=== PATIENT | female | born 1990 | race Caucasian/White ===

== ENCOUNTER 2023-06-12 18:44 | Emergency (ER) | payer OTHER ==
[~2023-06-12] VITALS: Ht 149.9 cm; Wt 53.5 kg
[2023-06-12] MEDS ORDERED: LIDOCAINE 1% INJ 50 ML MDV IJ ONE (20:30)
[2023-06-12] MEDS: LIDOCAINE 1% INJ 50 ML MDV IJ ONE (20:31)
[2023-06-12] MEDS ORDERED: SULF1TAB48 PO (22:35)
[2023-06-12] MEDS ORDERED: CEPH500C2 PO (22:35)
[2023-06-12] MEDS ORDERED: IBUP-1955 PO (22:35)
[2023-06-12 22:45] VITALS: BP 125/95; TEMP 98.5; O2SAT 99
== END 2023-06-12 22:46 | disposition home or self-care (01) ==
LOC: ER 18:49
DX: L02.414 Cutaneous abscess of left upper limb (principal)
CPT/HCPCS: J3490